=== PATIENT | female | born 1990 | race Caucasian/White ===

== ENCOUNTER 2017-03-26 18:08 | Emergency (ER) | payer BC ==
[~2017-03-26] VITALS: Ht 167.6 cm; Wt 90.7 kg
--- NOTE | 2017-03-26 19:20 | REPUSA ---
Clinical history: vaginal bleeding,, cramping. Findings: Real-time transabdominal and transvaginal ultrasound images of the pelvis were obtained. A retroverted uterus is noted, measuring 6.1 x 3.5 x 4.7 cm. The uterus demonstrates normal echotext ure and echogenicity. The the endometrial cavity contains a small cystic structure measuring 0.42 cm , which could represent an early gestational sac. Nofetal pole or yolk sac is seen at this time. Ther e is no evidence of subchorionic hemorrhage. The right ovary measures 2.6 x 2.4 x 2.0 c. There is a complex cyst in the right ovary measuring 0.9 x 1.4 x 1.3 cm cm. The left ovary measures 2.2 x 1.9 x 2.8 cm. No adnexal masses are seen. Color Doppler flow is seen within both ovaries. There is no evid ence of free fluid. Impression: 1. Possible intrauterine gestational sac measuring 5 weeks 1 day by ultrasound measurements. No feta l pole or yolk sac is identified at this time. Differential diagnosis includes early , blig hted ovum, or ectopic . Follow-up with serial serum beta hCG levels is recommended for furt her evaluation. 2. Right ovarian cyst, likely a corpus luteum cyst.
[2017-03-26] MEDS ORDERED: PREN1PAK2 PO (20:14)
[2017-03-26] MEDS ORDERED: TYLE325C PO (20:15)
[2017-03-26 20:24] VITALS: BP 149/81
== END 2017-03-26 20:26 | disposition home or self-care (01) ==
LOC: M ED 18:31
DX: O34.81 Maternal care for other abnormalities of pelvic organs, first trimester (principal); O20.0 Threatened abortion; N83.291 Other ovarian cyst, right side; Z88.1 Allergy status to other antibiotic agents; Z3A.01 Less than 8 weeks gestation of pregnancy

== ENCOUNTER → 2018-01-03 | Outpatient (CLI) | payer BC ==
[2018-01-03 19:24] LABS: BASO # 0.1 10^3/uL (0.0-0.2); BASO % 0.5 % (0.0-1.0); EOS # 0.1 10^3/uL (0.0-0.50); EOS % 1.2 % (0.0-3.0); HEMATOCRIT 40.3 % (36.0-47.0); HEMOGLOBIN 13.4 g/dl (12.0-16.0); IMMATURE GRANULOCYTE % 0.3 % (0-3.0); LYMPH # 2.4 10^3/uL (1.5-6.5); LYMPH % 26.5 % (24.0-44.0); MEAN CORPUSCULAR HEMOGLOBIN 29.1 pg (27.0-33.0); MEAN CORPUSCULAR HGB CONC 33.3 g/dl (32.0-36.5); MEAN CORPUSCULAR VOLUME 87.4 fl (80.0-96.0); MONO # 0.6 10^3/uL (0.0-0.8); MONO % 6.4 % (0.0-5.0); NEUTROPHILS # 5.9 10^3/uL (1.8-7.7); NEUTROPHILS % 65.1 % (36.0-66.0); PLATELET COUNT, AUTOMATED 296 10^3/uL (150-450); RED BLOOD COUNT 4.61 10^6/uL (4.00-5.40); RED CELL DISTRIBUTION WIDTH 13.2 % (11.5-14.5); WHITE BLOOD COUNT 9.1 10^3/uL (4.0-10.0)
[2018-01-03 22:50] LABS: CHLAMYDIA DNA AMPLIFICATION NEGATIVE (NEGATIVE); GC DNA AMPLIFICATION NEGATIVE (NEGATIVE)
[2018-01-05 10:27] LABS: RUBELLA IgG QUALITATIVE IMMUNE (IMMUNE)
[2018-01-05 10:50] LABS: HBsAg Prenatal NEGATIVE (NEGATIVE)
[2018-01-05 10:56] LABS: HIV 1&2 SCREEN CENTAUR NEGATIVE (NEGATIVE)
== END ==
LOC: M SMT 13:21
DX: Z34.81 Encounter for supervision of other normal pregnancy, first trimester (principal); Z3A.01 Less than 8 weeks gestation of pregnancy
CPT/HCPCS: 86762

== ENCOUNTER → 2018-03-07 | Outpatient (CLI) | payer BC | LOC: M SMT 14:06 | DX: Z36.89 Encounter for other specified antenatal screening (principal) ==

== ENCOUNTER → 2018-03-10 | Outpatient (CLI) | payer BC | LOC: M RAD 07:35 | DX: O28.3 Abnormal ultrasonic finding on antenatal screening of mother (principal); Z3A.17 17 weeks gestation of pregnancy | CPT/HCPCS: 76811 ==

== ENCOUNTER 2018-04-02 18:32 | Emergency (ER) | payer BC ==
[2018-04-02 21:12] LABS: BASO % 0.5 % (0.0-1.0); EOS # 0.2 10^3/uL (0.0-0.50); EOS % 2.4 % (0.0-3.0); HEMOGLOBIN 10.7 g/dl (12.0-15.5); IMMATURE GRANULOCYTE % 0.3 % (0-3.0); LYMPH # 2.8 10^3/uL (1.5-6.5); LYMPH % 31.7 % (24.0-44.0); MEAN CORPUSCULAR HEMOGLOBIN 29.5 pg (27.0-33.0); MEAN CORPUSCULAR HGB CONC 33.4 g/dl (32.0-36.5); MEAN CORPUSCULAR VOLUME 88.2 fl (80.0-96.0); MONO # 0.4 10^3/uL (0.0-0.8); MONO % 4.1 % (0.0-5.0); NEUTROPHILS # 5.4 10^3/uL (1.8-7.7); PLATELET COUNT, AUTOMATED 265 10^3/uL (150-450); RED BLOOD COUNT 3.63 10^6/uL (4.00-5.40); WHITE BLOOD COUNT 8.9 10^3/uL (4.0-10.0)
[2018-04-02 21:30] LABS: INR 0.85; PARTIAL THROMBOPLASTIN TIME 25.6 SECONDS (26.8-37.9); PROTHROMBIN TIME 11.6 SECONDS (12.4-14.5)
[2018-04-02 21:43] LABS: ALBUMIN 3.2 GM/DL (3.2-5.2); ALBUMIN/GLOBULIN RATIO 0.84 (1.00-1.93); ALKALINE PHOSPHATASE 131 U/L (45-117); ALT/SGPT 68 U/L (12-78); ANION GAP 7 MEQ/L (8-16); AST/SGOT 33 U/L (7-37); BILIRUBIN,DIRECT < 0.1 MG/DL (0.0-0.2); BILIRUBIN,TOTAL 0.2 MG/DL (0.2-1.0); BLOOD UREA NITROGEN 11 MG/DL (7-18); C REACTIVE PROTEIN QUANTITATIV 2.39 MG/DL (0.00-0.30); CALCIUM LEVEL 8.9 MG/DL (8.5-10.1); CARBON DIOXIDE LEVEL 27 MEQ/L (21-32); CHLORIDE LEVEL 108 MEQ/L (98-107); CREATININE FOR GFR 0.78 MG/DL (0.55-1.30); GLOMERULAR FILTRATION RATE > 60.0 (>60); GLUCOSE, FASTING 83 MG/DL (70-100); POTASSIUM SERUM 4.4 MEQ/L (3.5-5.1); SODIUM LEVEL 142 MEQ/L (136-145); URIC ACID 5.1 MG/DL (2.6-6.0)
== END 2018-04-02 22:15 | disposition left against medical advice (07) ==
LOC: M ED 22:15
DX: R60.0 Localized edema (principal); Z98.890 Other specified postprocedural states; Z88.0 Allergy status to penicillin
CPT/HCPCS: 84550

== ENCOUNTER 2019-12-12 11:13 | Emergency (ER) | payer OTHER, BC ==
[~2019-12-12] VITALS: Ht 167.6 cm; Wt 122.7 kg
[~2019-12-12 11:13] MED LIST: HYDR-3713; IBUP-354; ONDA-83; PREN1PAK2 PO; TYLE325C PO
[2019-12-12 14:18] LABS: BASO % 0.4 % (0.0-1.0); EOS # 0.1 10^3/uL (0.0-0.5); EOS % 1.3 % (0.0-3.0); HEMATOCRIT 41.1 % (36.0-47.0); HEMOGLOBIN 13.7 g/dl (12.0-15.5); LYMPH # 2.3 10^3/uL (1.5-5.0); LYMPH % 23.1 % (24.0-44.0); MEAN CORPUSCULAR HEMOGLOBIN 29.8 pg (27.0-33.0); MEAN CORPUSCULAR HGB CONC 33.3 g/dl (32.0-36.5); MEAN CORPUSCULAR VOLUME 89.3 fl (80.0-96.0); MONO # 0.4 10^3/uL (0.0-0.8); MONO % 4.2 % (0.0-5.0); NEUTROPHILS % 70.7 % (36.0-66.0); PLATELET COUNT, AUTOMATED 348 10^3/uL (150-450)
[2019-12-12 14:47] LABS: ALBUMIN 3.9 GM/DL (3.2-5.2); ALT/SGPT 23 U/L (12-78); BILIRUBIN,DIRECT 0.1 MG/DL (0.0-0.2); BILIRUBIN,TOTAL 0.2 MG/DL (0.2-1.0); BLOOD UREA NITROGEN 10 MG/DL (7-18); CALCIUM LEVEL 9.3 MG/DL (8.5-10.1); CARBON DIOXIDE LEVEL 26 MEQ/L (21-32); CHLORIDE LEVEL 104 MEQ/L (98-107); CREATININE FOR GFR 0.76 MG/DL (0.55-1.30); GLOMERULAR FILTRATION RATE > 60.0 (>60); GLUCOSE, FASTING 78 MG/DL (70-100); LIPASE 105 U/L (73-393); POTASSIUM SERUM 4.3 MEQ/L (3.5-5.1); SODIUM LEVEL 139 MEQ/L (136-145); TOTAL PROTEIN 8.2 GM/DL (6.4-8.2)
[2019-12-12 14:52] LABS: HCG, SERUM QUALITATIVE NEGATIVE (NEGATIVE)
[2019-12-12 17:23] VITALS: BP 136/80
== END 2019-12-12 17:22 | disposition home or self-care (01) ==
LOC: M ED 11:13
DX: R10.9 Unspecified abdominal pain (principal); R06.02 Shortness of breath; Z77.098 Contact with and (suspected) exposure to other hazardous, chiefly nonmedicinal, chemicals; Z88.0 Allergy status to penicillin